=== PATIENT | female | born 1955 | race Caucasian/White ===

== ENCOUNTER 2022-03-04 07:55 | Emergency (ER) | payer OTHER ==
[2022-03-04] MEDS ORDERED: MORPHINE 2 MG/ML SYR ONE (09:02)
[2022-03-04] MEDS ORDERED: NA CHLORIDE 0.9% 1,000 ML ONE (09:03)
[2022-03-04] MEDS ORDERED: FAMOTIDINE 20 MG/2 ML VIAL IV ONE (09:03)
[2022-03-04] MEDS ORDERED: ONDANSETRON 4 MG/2 ML VIAL ONE (09:03)
[2022-03-04] MEDS ORDERED: KETOROLAC 30 MG/ML INJ ONE (09:03)
[2022-03-04 09:09] LABS: Absolute Lymphocytes (CBC) 5.1 K/uL (0.7-4.9); Hematocrit 41.4 % (36.0-45.0); Lymphocytes % 58.7 % (15.3-44.8); MCV 103.4 fL (80-100); MPV 7.4 fL (7.6-11.3)
[2022-03-04 09:36] LABS: Bilirubin Direct 0.2 mg/dL (0-0.2); Bilirubin Total 0.4 mg/dL (0.2-1.0); Protein, Total 9.8 g/dL (6.4-8.2)
--- NOTE | 2022-03-04 10:21 | RAD REPORT ---
EXAM DESCRIPTION: CT - Head C Spine Cap Mary Kate Haley - 03/04/2022 9:42 am CLINICAL HISTORY: Trauma, head and neck injury. Chest, abdomen and pelvis pain. fall COMPARISON: No comparisons TECHNIQUE: CT head without contrast. CT cervical spine without contrast with coronal and sagittal reformatted images. CT chest, abdomen and pelvis with IV contrast (approximately 100 mL nonionic IV contrast) with zuluaga l and sagittal reformatted images of the spine. All CT scans are performed using dose optimization technique as appropriate and may include automated exposure control or mA/KV adjustment according to patient size. FINDINGS: CT HEAD WITHOUT CONTRAST: No intracranial hemorrhage, hydrocephalus or extra-axial fluid collection. No areas of brain edema o r midline shift. The paranasal sinuses and mastoids are clear. The calvarium is intact. Vertebral atherosclerosis. CT CERVICAL SPINE WITHOUT CONTRAST: No fracture or subluxation. Moderate lower cervical degenerative changes. The prevertebral soft tissu es are normal in thickness. CT CHEST, ABDOMEN, PELVIS WITH CONTRAST: The lungs are clear.No pneumothorax or pericardial/pleural fluid. No evidence of intra-abdominal visceral injury, free fluid or free air. No concerning pelvic findings. Right posterolateral fourth, fifth, sixth ribs are fractured however there is some callus formation s uggesting subacute fractures. IMPRESSION: Subacute fractures involving the right posterolateral fourth, fifth and sixth ribs. No a dditional trauma related abnormality seen.
--- NOTE | 2022-03-04 10:28 | ER ---
Nurse's Notes [facility] Name: Elvie Bashir Age: 66 yrs Sex: Female : 1955 Arrival Date: 03/04/2022 Time: 08:01 Bed 8 Private MD: Diagnosis: Multiple fractures of ribs, right side-clinically;Fall on same level, unspecified;Abdominal tenderness-contusion Presentation: 03/04 08:01 Chief complaint: EMS states: Pt fell 03/01, states that she was trying to keep a bowl ph of cereal from spilling, reports that she hit R rib area on table, c/o R rib pain 04/30, VSS. Coronavirus screen: Vaccine status: Patient reports receiving the 2nd dose of the covid vaccine. Ebola Screen: No symptoms or risks identified at this time. Initial Sepsis Screen: Does the patient meet any 2 criteria? No. Patient's initial sepsis screen is negative. Does the patient have a suspected source of infection? No. Patient's initial sepsis screen is negative. Risk Assessment: Do you want to hurt yourself or someone else? Patient reports no desire to harm self or others. Onset of symptoms was March 04, 2022. 08:01 Method Of Arrival: EMS ph 08:01 Acuity: MARCIE 4 ph Triage Assessment: 08:07 General: Appears in no apparent distress. comfortable, Behavior is calm, cooperative, ph appropriate for age. Pain: Complains of pain in R ribs. Neuro: Level of Consciousness is awake, alert, obeys commands, Oriented to person, place, time, situation. Cardiovascular: Capillary refill < 3 seconds in bilateral fingers Patient's skin is warm and dry. Respiratory: Airway is patent Respiratory effort is even, unlabored, Respiratory pattern is regular, symmetrical. Respiratory: Reports pain with cough pain with respiration. GI: No signs and/or symptoms were reported involving the gastrointestinal system. Derm: Skin is pink, warm \T\ dry. Musculoskeletal: Circulation, motion, and sensation intact. Range of motion: intact in all extremities. Historical: - Allergies: 08:06 Cephalexin Monohydrate; ph 08:06 Codeine; ph 08:06 PENICILLINS; ph - PMHx: 08:06 Anxiety; Depression; Hepatitis; Hypertension; PTC; ph - Immunization history:: Adult Immunizations unknown. - Social history:: Smoking status: Patient reports the use of cigarette tobacco products, denies chronic smoking, but will smoke occasionally. Screenin:08 Abuse screen: Denies threats or abuse. Denies injuries from another. Nutritional ph screening: No deficits noted. Tuberculosis screening: No symptoms or risk factors identified. Fall Risk Fall in past 12 months (25 points). No secondary diagnosis (0 pts). No IV (0 pts). Ambulatory Aid- None/Bed Rest/Nurse Assist (0 pts). Gait- Normal/Bed Rest/Wheelchair (0 pts) Mental Status- Oriented to own ability (0 pts). Total Aguirre Fall Scale indicates Low Risk Score (25-44 pts). Fall prevention measures have been instituted. Side Rails Up X 2 Frequent Obs/Assesments occuring As available Patient and Family Educated on Fall Prevention Program and strategies. Assessment: 08:09 General: SEE TRIAGE ASSESSMENT. ph 09:35 Reassessment: Patient appears in no apparent distress at this time. Patient and/or ph family updated on plan of care and expected duration. Pain level reassessed. Patient is alert, oriented x 3, equal unlabored respirations, skin warm/dry/pink. 10:35 Reassessment: Patient appears in no apparent distress at this time. Patient and/or ph family updated on plan of care and expected duration. Pain level reassessed. Patient is alert, oriented x 3, equal unlabored respirations, skin warm/dry/pink. Vital Signs: 08:01 BP 129 / 89; Pulse 87; Resp 18; Temp 97.3; Pulse Ox 99% on R/A; Weight 65.77 kg; Height ph 5 ft. 3 in. (160.02 cm); Pain 10/10; 09:30 BP 118 / 72; Pulse 78; Resp 18; Temp 98.0; Pulse Ox 99% on R/A; ph 08:01 Body Mass Index 25.69 (65.77 kg, 160.02 cm) ED Course: 08:01 Patient arrived in ED. ph 08:02 Rolan Sepulveda MD is Attending Physician. [facility] 08:06 Triage completed. ph 08:07 Arm band placed on Patient placed in an exam room, on a stretcher, on pulse oximetry. ph 08:09 Elise Francisco RN is Primary Nurse. ph 08:09 Patient has correct armband on for positive identification. Bed in low position. Call ph light in reach. Side rails up X 1. Pulse ox on. NIBP on. Door closed. Noise minimized. Warm blanket given. 08:56 Initial lab(s) drawn, by me, sent to lab. T\T\S collected, blood band applied to patient. [email or web address] Inserted saline lock: 22 gauge in right antecubital area, using aseptic technique. Blood collected. 08:57 LFT's Sent. jw7 08:57 Lipase Sent. jw7 08:57 Basic Metabolic Panel Sent. jw7 08:57 CBC with Diff Sent. jw7 08:57 Type And Screen Sent. jw7 09:08 XRAY Chest (1 view) In Process Unspecified. EDMS 09:43 CT Traumagram (Head C Spine CAP W Con) In Process Unspecified. EDMS 10:28 Luis Alfredo Martínez MD is Referral Physician. roscoe 10:28 Arslan Davis MD is Referral Physician. roscoe 10:50 No provider procedures requiring assistance completed. IV discontinued, intact, ph bleeding controlled, No redness/swelling at site. Pressure dressing applied. Administered Medications: 09:20 Drug: NS 0.9% 1000 ml Route: IV; Rate: 1 bolus; Site: right antecubital; ph 10:45 Follow up: Response: No adverse reaction; IV Status: Completed infusion ph 09:20 Drug: Zofran (Ondansetron) 4 mg Route: IVP; Site: right antecubital; ph 10:00 Follow up: Response: No adverse reaction ph 09:20 Drug: Pepcid (famotidine) 20 mg Route: IVP; Site: right antecubital; ph 10:00 Follow up: Response: No adverse reaction ph 09:22 Drug: morphine 2 mg Route: IVP; Infused Over: 4 mins; Site: right antecubital; ph 10:00 Follow up: Response: No adverse reaction; Pain is decreased; RASS: Alert and Calm (0) ph 09:25 Drug: Ketorolac 15 mg Route: IVP; Site: right antecubital; ph 10:00 Follow up: Response: No adverse reaction; Pain is decreased ph Medication: 08:09 VIS not applicable for this client. ph Outcome: 10:28 Discharge ordered by . roscoe 10:52 Patient left the ED. kj1 10:52 Discharged to home ambulatory. ph 10:52 Condition: good 10:52 Discharge instructions given to patient, Instructed on discharge instructions, follow up and referral plans. medication usage, Demonstrated understanding of instructions, follow-up care, medications, Prescriptions given X 3. Signatures: Dispatcher [employer] Rolan Bender MD MD cha Hall, Patricia, RN RN Koffi, Telma [email or web address] Shayla Reynoso jw7
--- NOTE | 2022-03-04 10:28 | RAD REPORT ---
EXAM DESCRIPTION: RAD - Chest Single View - 03/04/2022 9:06 am CLINICAL HISTORY: PAIN Chest pain. COMPARISON: Chest Single View dated 08/16/2017; Chest Single View dated 01/09/2016; CHEST SINGLE VIEW dated 05/15/2015; CHEST SINGLE VIEW dated 02/27/2015 FINDINGS: Portable technique limits examination quality. The lungs are grossly clear. The heart is normal in size. No displaced fractures. IMPRESSION: No acute intrathoracic process suspected.
--- NOTE | 2022-03-04 10:28 | EDPHYS ---
Physician Documentation [facility] Name: Elvie Bashir Age: 66 yrs Sex: Female : 1955 Arrival Date: 03/04/2022 Time: 08:01 Bed 8 Private MD: ED Physician Rolan Sepulveda HPI: 03/04 09:09 This 66 yrs old Female presents to ER via EMS with complaints of Fall Injury. roscoe 09:09 Details of fall: The patient fell from seated position, out of a chair. Onset: The roscoe symptoms/episode began/occurred just prior to arrival. Associated injuries: The patient sustained injury to the chest, injury to the abdomen, specifically the posterior aspect of right lateral abdomen, anterior aspect of right lateral abdomen and right upper quadrant, contusion, swelling, tenderness. Severity of symptoms: At their worst the symptoms were mild, moderate, in the emergency department the symptoms are unchanged. The patient has not experienced similar symptoms in the past. Historical: - Allergies: 08:06 Cephalexin Monohydrate; ph 08:06 Codeine; ph 08:06 PENICILLINS; ph - PMHx: 08:06 Anxiety; Depression; Hepatitis; Hypertension; PTC; ph - Immunization history:: Adult Immunizations unknown. - Social history:: Smoking status: Patient reports the use of cigarette tobacco products, denies chronic smoking, but will smoke occasionally. ROS: 09:11 Constitutional: Negative for fever, chills, and weight loss, Eyes: Negative for injury, roscoe pain, redness, and discharge, ENT: Negative for injury, pain, and discharge, Neck: Negative for injury, pain, and swelling, Cardiovascular: Negative for chest pain, palpitations, and edema, Respiratory: Negative for shortness of breath, cough, wheezing, and pleuritic chest pain, Back: Negative for injury and pain, : Negative for injury, bleeding, discharge, and swelling, MS/Extremity: Negative for injury and deformity, Skin: Negative for injury, rash, and discoloration, Neuro: Negative for headache, weakness, numbness, tingling, and seizure. 09:11 Abdomen/GI: Positive for abdominal pain, of the posterior aspect of right lateral abdomen, anterior aspect of right lateral abdomen and right upper quadrant. Exam: 09:11 Constitutional: This is a well developed, well nourished patient who is awake, alert, roscoe and in no acute distress. Head/Face: Normocephalic, atraumatic. Eyes: Pupils equal round and reactive to light, extra-ocular motions intact. Lids and lashes normal. Conjunctiva and sclera are non-icteric and not injected. Cornea within normal limits. Periorbital areas with no swelling, redness, or edema. ENT: Nares patent. No nasal discharge, no septal abnormalities noted. Tympanic membranes are normal and external auditory canals are clear. Oropharynx with no redness, swelling, or masses, exudates, or evidence of obstruction, uvula midline. Mucous membranes moist. Neck: Trachea midline, no thyromegaly or masses palpated, and no cervical lymphadenopathy. Supple, full range of motion without nuchal rigidity, or vertebral point tenderness. No Meningismus. Cardiovascular: Regular rate and rhythm with a normal S1 and S2. No gallops, murmurs, or rubs. Normal PMI, no JVD. No pulse deficits. Respiratory: Lungs have equal breath sounds bilaterally, clear to auscultation and percussion. No rales, rhonchi or wheezes noted. No increased work of breathing, no retractions or nasal flaring. Back: No spinal tenderness. No costovertebral tenderness. Full range of motion. Female : Normal external genitalia. Skin: Warm, dry with normal turgor. Normal color with no rashes, no lesions, and no evidence of cellulitis. MS/ Extremity: Pulses equal, no cyanosis. Neurovascular intact. Full, normal range of motion. Neuro: Awake and alert, GCS 15, oriented to person, place, time, and situation. Cranial nerves II-XII grossly intact. Motor strength 5/5 in all extremities. Sensory grossly intact. Cerebellar exam normal. Normal gait. Psych: Awake, alert, with orientation to person, place and time. Behavior, mood, and affect are within normal limits. 09:11 Chest/axilla: Inspection: normal, Palpation: tenderness, that is moderate, of the right lateral posterior chest and right lateral anterior chest, Axilla: are normal, Breasts: are normal, Lymph nodes: lymphadenopathy is not appreciated. 09:11 Abdomen/GI: Inspection: abdomen appears normal, Bowel sounds: normal, Palpation: mild abdominal tenderness, moderate abdominal tenderness, in the posterior aspect of right lateral abdomen, anterior aspect of right lateral abdomen and right upper quadrant. 10:28 ECG was reviewed by the Attending Physician. [facility] Vital Signs: 08:01 BP 129 / 89; Pulse 87; Resp 18; Temp 97.3; Pulse Ox 99% on R/A; Weight 65.77 kg; Height ph 5 ft. 3 in. (160.02 cm); Pain 10/10; 09:30 BP 118 / 72; Pulse 78; Resp 18; Temp 98.0; Pulse Ox 99% on R/A; ph 08:01 Body Mass Index 25.69 (65.77 kg, 160.02 cm) ph MDM: 08:02 Patient medically screened. roscoe 09:18 Differential diagnosis: contusion, laceration, multiple trauma, sprain. Differential [facility] diagnosis: non-specific abd pain, urinary tract infection, Blunt Chest Trauma Chest Wall Contusion Pneumothorax Pulmonary Contusion Rib Fracture. Data reviewed: vital signs, nurses notes, lab test result(s), radiologic studies, CT scan, plain films. Data interpreted: monitor technician: rate is 87 beats/min, rhythm is regular, Pulse oximetry: on room air is 99 %. Test interpretation: by ED physician or midlevel provider: plain radiologic studies. Counseling: I had a detailed discussion with the patient and/or guardian regarding: the historical points, exam findings, and any diagnostic results supporting the discharge/admit diagnosis, lab results, radiology results, the need for outpatient follow up, for definitive care, a family practitioner, a general surgeon. 03/04 08:04 Order name: Basic Metabolic Panel; Complete Time: 09:44 [facility] 03/04 08:04 Order name: CBC with Diff; Complete Time: 09:44 [facility] 03/04 08:04 Order name: Type And Screen [facility] 03/04 08:04 Order name: Lipase; Complete Time: 09:44 [facility] 03/04 08:04 Order name: LFT's; Complete Time: 09:44 [facility] 03/04 08:04 Order name: CT Traumagram (Head C Spine CAP W Con); Complete Time: 10:27 [facility] 03/04 08:04 Order name: XRAY Chest (1 view) [facility] 03/04 08:04 Order name: INCENTIVE SPIROMETRY [facility] 03/04 08:04 Order name: Labs collected and sent; Complete Time: 08:57 [facility] EC:28 Rate is 83 beats/min. Rhythm is regular. QRS [place] is Normal. [place] interval is normal. QRS roscoe interval is normal. QT interval is normal. No Q waves. T waves are Normal. No ST changes noted. Clinical impression: NSR w/ Non-specific ST/T Changes and No evidence of ischemia. Interpreted by me. Reviewed by me. Administered Medications: 09:20 Drug: NS 0.9% 1000 ml Route: IV; Rate: 1 bolus; Site: right antecubital; ph 10:45 Follow up: Response: No adverse reaction; IV Status: Completed infusion ph 09:20 Drug: Zofran (Ondansetron) 4 mg Route: IVP; Site: right antecubital; ph 10:00 Follow up: Response: No adverse reaction ph 09:20 Drug: Pepcid (famotidine) 20 mg Route: IVP; Site: right antecubital; ph 10:00 Follow up: Response: No adverse reaction ph 09:22 Drug: morphine 2 mg Route: IVP; Infused Over: 4 mins; Site: right antecubital; ph 10:00 Follow up: Response: No adverse reaction; Pain is decreased; RASS: Alert and Calm (0) ph 09:25 Drug: Ketorolac 15 mg Route: IVP; Site: right antecubital; ph 10:00 Follow up: Response: No adverse reaction; Pain is decreased ph Disposition Summary: 03/04/22 10:28 Discharge Ordered Location: Home roscoe Problem: new roscoe Symptoms: have improved roscoe Condition: Stable roscoe Diagnosis - Multiple fractures of ribs, right side - clinically roscoe - Fall on same level, unspecified roscoe - Abdominal tenderness - contusion roscoe Followup: roscoe - With: - When: 2 - 3 days - Reason: Recheck today's complaints, Continuance of care, Re-evaluation by your physician Followup: roscoe - With: - When: 2 - 3 days - Reason: Recheck today's complaints, Continuance of care, Re-evaluation by your physician Discharge Instructions: - Discharge Summary Sheet roscoe - Contusion roscoe - Rib Contusion roscoe - Rib Fracture roscoe - Contusion, [id number] roscoe - How to Use an Incentive Spirometer roscoe - Rib Fracture, [id number] roscoe Forms: - Medication Reconciliation Form roscoe - Thank You Letter roscoe - Antibiotic Education roscoe - Prescription Opioid Use roscoe Prescriptions: - Pepcid 20 mg Oral Tablet - take 1 tablet by ORAL route every 12 hours for 10 days; 20 tablet; Refills: 0, [facility] Product Selection Permitted - Zofran 4 mg Oral Tablet - take 1 tablet by ORAL route every 12 hours As needed; 20 tablet; Refills: 0, [facility] Product Selection Permitted - Tylenol-Codeine #3 300 mg-30 mg Oral - take 2 tablet by ORAL route every 6 hours; 24 tablet; Refills: 0, Product [facility] Selection Permitted Signatures: Dispatcher [employer] Rolan Bender MD MD cha Hall, Patricia RN RN ph
[2022-03-04 11:07] VITALS: BP 129/89; TEMP 97.3; O2SAT 99
--- NOTE | 2022-03-06 08:20 | EKG ---
Test Date: 2022-03-04 Test Time: 08:26:06 Gore Cutter: PH MEASUREMENT RESULTS: Intervals: Rate: 83 KS: 146 QRSD: 76 QT: 414 QTc: 486 [place]: P: 39 KS: 146 QRS: -55 T: 67 INTERPRETIVE STATEMENTS: Normal sinus rhythm Possible Left atrial enlargement Left anterior fascicular block Abnormal ECG Compared to ECG 08/16/2017 08:47:41 Left anterior fascicular block now present Electronically Signed On 03-06-22 08:12:00 CDT by Phong Silva
== END 2022-03-04 10:52 | disposition home or self-care (01) ==
LOC: ER 07:55
DX: S22.41XA Multiple fractures of ribs, right side, initial encounter for closed fracture (principal); S30.1XXA Contusion of abdominal wall, initial encounter; W18.30XA Fall on same level, unspecified, initial encounter; I10 Essential (primary) hypertension; F17.210 Nicotine dependence, cigarettes, uncomplicated; Z88.0 Allergy status to penicillin; Z88.1 Allergy status to other antibiotic agents; Z88.5 Allergy status to narcotic agent
CPT/HCPCS: 96361; 93005; 85025; 80048; 36415; 86900; 86850; 82565; 86901; 80076; 83690; 70450; 72125; 71260; 74177; 71045; 96375; 96374; 99284; J2270; J7030; J2405